=== PATIENT | male | born 2000 | race Caucasian/White ===

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

== ENCOUNTER 2023-12-24 19:16 | Emergency (ER) | payer SELFPAY ==
[~2023-12-24] VITALS: Ht 172.7 cm; Wt 76.0 kg
[~2023-12-24 19:16] MED LIST changes: -FLUO-124 PO; +FLUO-413 PO
[2023-12-24 19:22] VITALS: O2SAT 98
[2023-12-24 20:08] LABS: BASOPHILS % 0.6 % (0.0-2.0); HEMATOCRIT. 46.2 % (42.0-52.0); HEMOGLOBIN. 16.7 g/dL (14.0-18.0); LYMPHOCYTES % 22.9 % (20.0-50.0); MEAN CORPUSCULAR HEMOGLOBIN 30.3 pg (28.0-32.0); MEAN CORPUSCULAR HGB CONC 36.1 g/dL (31.0-37.0); MEAN PLATELET VOLUME 9.2 fl (7.4-10.4); MONOCYTES % 7.8 % (2.0-8.0); NEUTROPHILS % 68.7 % (40.0-76.0); PLATELET 272 x1000/uL (130-400); RED CELL DISTRIBUTION WIDTH 13.2 % (11.6-14.6); WHITE BLOOD COUNT 7.2 x1000/uL (4.5-11.0)
[2023-12-24 20:09] LABS: DIFFERENTIAL COMMENT 1
[2023-12-24] MEDS: DIAZEPAM 5 MG/ML 2ML SYR IV ONE ×2 (20:09→21:31)
[2023-12-24 20:27] LABS: CHLORIDE 107 mEq/L (98-107); POTASSIUM 3.7 mEq/L (3.5-5.1); SODIUM 141 mEq/L (136-145)
[2023-12-24 20:28] LABS: CALCIUM 9.5 mg/dL (8.7-10.4); CARBON DIOXIDE 23 mEq/L (21-32)
[2023-12-24 20:33] LABS: CREATININE 0.9 mg/dL (0.6-1.3); GLUCOSE 115 mg/dL (70-105)
[2023-12-24 20:34] LABS: ETHANOL BLOOD 180 mg/dL (<10)
[2023-12-24 20:48] LABS: UREA NITROGEN BLOOD < 5 mg/dL (9-23)
[2023-12-24 21:00] VITALS: TEMP 36.78072
[2023-12-24] MEDS: FOLIC ACID 1 MG, THIAMINE HCL 100 MG, MVI, ADULT NO.1 10 ML in DEXTROSE 5% WATER 1,000 ML IV ONE (21:03)
[2023-12-24 22:35] VITALS: BP 112/85; PULSE 132; RESP 17; O2SAT 97
[2023-12-24] MEDS: FAMOTIDINE 20MG TABLET PO ONE (22:36)
[2023-12-24] MEDS: MAGNESIUM/ALUMINUM HYDROXIDE/SIMETHICONE 30ML UDC PO ONE (22:37)
== END 2023-12-24 23:01 | disposition home or self-care (01) ==
LOC: ER 19:16 → EDBEDREQ 21:22 → EDBEDREQTM 21:22 → ER 23:01
DX: F10.939 Alcohol use, unspecified with withdrawal, unspecified (principal); F17.200 Nicotine dependence, unspecified, uncomplicated; F14.10 Cocaine abuse, uncomplicated; Y90.6 Blood alcohol level of 120-199 mg/100 ml
CPT/HCPCS: 80048; 80320; 85025; 36415; 93005; 96365; 96375; 99284; J3360; J3490 ×2; J3411; J7070; Z7610 ×2; G0480